=== PATIENT | female | born 1990 | race Caucasian/White ===

== ENCOUNTER 2018-10-15 06:10 | Day surgery (SDC) | payer BC, OTHER ==
[2018-10-12 15:36] VITALS: BMI 23.3
[2018-10-15 06:33] VITALS: TEMP 97.6
[2018-10-15] MEDS ORDERED: SUCCINYLCHOLINE CHLORIDE 200 MG/10 ML VIAL ONE (07:14)
[2018-10-15] MEDS ORDERED: ePHEDrine SULFATE 50 MG/1 ML AMPULE ONE (07:14)
[2018-10-15] MEDS ORDERED: PROPOFOL 20 ML ONE ×6 (07:14)
[2018-10-15] MEDS ORDERED: MIDAZOLAM HCL 2 MG/2 ML SINGLE DOSE VIAL ONE (07:15)
--- NOTE | 2018-10-15 07:24 | HP ---
History & Physical Update - History History: No Change - Physical Physical: No Change - Assessment Assessment: No Change (Initial H&P is located in patient's paper chart...complete and accurate. No new complaints or medications.) - Plan Plan: No Change
[2018-10-15] MEDS ORDERED: BUPIVACAINE HCL/PF 0.5% (5MG/ML) 10 ML VIAL ONE (07:25)
[2018-10-15] MEDS ORDERED: LIDOCAINE HCL 1%, 10 MG/ML (20ML VIAL) ONE (07:25)
[2018-10-15] MEDS ORDERED: KETAMINE HCL 200 MG/20 ML VIAL ONE (08:06)
[2018-10-15] MEDS ORDERED: LIDOCAINE HCL 1%, 10 MG/ML (50 mL VIAL) IJ ONE ×2 (08:11)
[2018-10-15] MEDS ORDERED: BUPIVACAINE HCL/PF (5 MG/ML) 30 ML VIAL IJ ONE ×2 (08:11)
[2018-10-15] MEDS ORDERED: BACITRACIN 15 GM TUBE TOPICAL OINTMENT ONE (08:17)
[2018-10-15] MEDS ORDERED: LIDOCAINE HCL/PF 2% SDV 5ML VIAL ONE (08:19)
[2018-10-15] MEDS ORDERED: BACITRACIN 15 GM TUBE TOPICAL OINTMENT TP ONE (08:29)
[2018-10-15] MEDS ORDERED: IBUPROFEN 600 MG TABLET (FP) PO ONE ×2 (09:05→09:10)
--- NOTE | 2018-10-15 09:16 | OP ---
Operative Note - Note: Operative Date: 10/15/18 Pre-Operative Diagnosis: scalp cysts Operation: excision scalp cysts (2) Findings: 2.0 cm. scalp cysts Surgeon: Tuan Davenport Anesthesiologist/[employer] OPERATOR: Vernon Aguilera Anesthesia: MAC Specimens Removed: scalp cysts x2 Estimated Blood Loss (mls): 5
[2018-10-15] MEDS ORDERED: ceFAZolin SODIUM 1 GM VIAL ONE (09:32)
[2018-10-15] MEDS ORDERED: KETOROLAC TROMETHAMINE 30 MG/1 ML VIAL ONE (09:32)
[2018-10-15] MEDS ORDERED: DEXAMETHASONE SOD PHOSPHATE 4 MG/1 ML VIAL ONE (09:32)
[2018-10-15 10:44] VITALS: BP 129/78; PULSE 64
--- NOTE | 2018-10-16 17:27 | PATH ---
Surgical Pathology Report Patient Name: KAREN CARDONA [facility]. Rec. #: [id number] /Age/Gender: 1990 (Age: 28) / F Account: [id number] Location: [facility] Taken: 10/15/2018 Received: 10/15/2018 Reported: 10/16/2018 Physicians: Tuan Davenport MD Specimen(s) Received SCALP CYST Clinical History Scalp sebaceous cyst Final Diagnosis SCALP CYST X 2, EXCISION: TRICHILEMMAL CYST (PILAR CYST), TWO, WITH FOCAL HISTIOCYTIC REACTION. Electronically Signed Tanya Ibarra M.D. Gross Description Received in formalin labeled "scalp cyst x2," is a 0.8 x 0.5 x 0.4 cm focally disrupted cyst. Also received within the same container is a 1.0 x 1.0 x 0.6 cm intact cyst. The smaller cyst is bisected and the larger cyst is trisected. The specimen is entirely submitted in one cassette. /10/15/2018 [facility]10/15/2018
--- NOTE | 2018-10-19 09:48 | OP ---
DATE OF OPERATION: 10/15/2018 PREOPERATIVE DIAGNOSIS: Scalp cysts. POSTOPERATIVE DIAGNOSIS: Scalp cysts. PROCEDURE: Excision of scalp cyst. SURGEON: Tuan Davenport MD ANESTHESIA: Local with IV sedation. OPERATIVE FINDINGS: There were 2 approximately 2.0 cm scalp cysts, and the rest of the findings were unremarkable. PROCEDURE: The patient was placed on the operating room table in supine position, and the area over both scalp cysts and the hair over the area of both scalp cysts was conservatively removed. The scalp was then prepped with ChloraPrep and draped in sterile fashion. A timeout was taken, and incision was mapped out over both cysts, and the area was infiltrated with 1% xylocaine and 0.25% Marcaine in equal concentration. Incision was made with the scalpel and carried down through the skin and subcutaneous tissue and the scalp cyst bluntly dissected from the surrounding tissue. The pedicle was clamped. The cysts excised and sent for pathological examination. The pedicle was ligated with 3-0 Vicryl suture, and then the skin incision closed with 3-0 nylon horizontal locking mattress sutures. The same thing was repeated for the remaining cyst, and then both wounds were dressed with bacitracin ointment and the procedure terminated at this point. Procedure terminated at this point, and the patient transferred to the postanesthesia care unit in stable condition awake and alert. ESTIMATED BLOOD LOSS: Minimal. DRAINS: None. SPECIMENS: Scalp cysts to Pathology. I, Tuan Daevnport MD, was physically present in the operating room from the time the patient was placed on the operating room table until she was transferred to the postanesthesia care unit in my accompaniment. Tuan Davenport MD /[id number]
== END 2018-10-15 11:03 | disposition home or self-care (01) ==
LOC: JASU-SURG 06:10
PROVIDERS: ATTEND Surgery
PROC: 0HB0XZZ Excision of Scalp Skin, External Approach (ICD-10-PCS; principal; 2018-10-15 08:00)
DX: L72.3 Sebaceous cyst (principal)
CPT/HCPCS: 84703; 88304-TC